=== PATIENT | male | born 1970 | race Two or more races ===

== ENCOUNTER → 2025-01-18 | Outpatient (CLI) | payer BC, SELFPAY ==
[2025-01-18 16:44] LABS: Hematocrit 44.4 % (40-54); Hemoglobin 14.2 g/dL (13.0-16.5); Immature Granulocytes Count 0.020 X10^3/uL (0.0-0.0); Mean Corp Hgb Conc 32.0 g/dL (32-36); Mean Corpuscular Volume 83.5 fL (80-94); Mean Platelet Vol. 9.4 fl (6.2-12.0); NRBC Flagged by Analyzer 0 % (0-5); Platelet Count 368 K/mm3 (150-450); RBC Distribution Width CV 13.0 % (11.6-14.6); RBC Distribution Width SD 39.6 fl (35.1-43.9); Red Blood Count 5.32 M/mm3 (4.6-6.2); White Blood Count 9.5 K/mm3 (4.4-11.0)
[2025-01-18 17:07] LABS: Creatinine, Urine (random) 87.40 mg/dL (39.00-259.00); Microalbumin,Random Urine 22.6 mg/L (<20 mg/L)
[2025-01-18 17:27] LABS: AST(SGOT) 27 U/L (<=37); Alanine Aminotransfer ALT/SGPT 31 U/L (<=46); Albumin, Serum 4.5 g/dL (3.5-5.0); Alkaline Phosphatase 118 U/L (40-129); Anion Gap 13 (5-15); BUN 7 mg/dL (4-19); BUN/Creat Ratio 8.5 RATIO (10-20); Calcium,Total 10.4 mg/dL (7.6-11.0); Carbon Dioxide 24.7 mmol/L (21.0-32.0); Chloride 99 mmol/L (98-108); Cholesterol 193 mg/dL (<=200); Globulin 3.9 g/dL (2.2-4.2); Glucose 320 mg/dL (70-99); Low Density Lipoprotein Calc. 121 mg/dL; Potassium 5.1 mmol/L (3.3-5.1); Triglycerides 153 mg/dL; Very Low Density Lipoprotein 31 mg/dL (5-40); Vitamin B12 249 pg/mL (180-914); Vitamin D,25 Hydroxy 11.7 ng/mL (30-100); cholesterol:hdl ratio screen 4.67
[2025-01-24 09:08] LABS: Testosterone, % Free 3.76 % (1.50-4.20); Testosterone, Free 5.87 ng/dL (5.00-21.00)
== END | disposition home or self-care (01) ==
DX: E11.40 Type 2 diabetes mellitus with diabetic neuropathy, unspecified (principal); R53.83 Other fatigue; G62.9 Polyneuropathy, unspecified
CPT/HCPCS: 36415; 80053; 80061; 82043; 82306; 82570; 82607; 84402; 84403; 84443; 85025

== ENCOUNTER → 2025-02-06 | Outpatient (CLI) | payer BC, SELFPAY ==
[2025-02-06 10:38] LABS: Follicle Stimulating Hormone 3.0 mIU/mL
[2025-02-09 13:08] LABS: Testosterone, % Free 2.57 % (1.50-4.20); Testosterone, Free 6.81 ng/dL (5.00-21.00)
== END | disposition home or self-care (01) ==
LOC: PAVLAB 09:14
DX: E29.1 Testicular hypofunction (principal)
CPT/HCPCS: 83001; 83002; 84402; 84403